=== PATIENT | female | born 1950 | race Two or more races ===

== ENCOUNTER → 2017-02-18 | Outpatient (CLI) | payer MEDICARE | END | disposition home or self-care (01) | LOC: CFH 16:03 → MERGE 16:03 | PROVIDERS: ATTEND Nurse Practitioner Family | DX: M51.36 Other intervertebral disc degeneration, lumbar region (principal); M48.061 Spinal stenosis, lumbar region without neurogenic claudication; M43.16 Spondylolisthesis, lumbar region; M54.17 Radiculopathy, lumbosacral region; Z87.311 Personal history of (healed) other pathological fracture | CPT/HCPCS: 72148 ==